=== PATIENT | female | born 1995 | race Caucasian/White ===

== ENCOUNTER 2024-02-03 14:50 | Outpatient (REF) | payer MEDICAID, SELFPAY ==
[2024-02-03 15:59] LABS: MANUAL DIFF FLAG NO
[2024-02-03 16:09] LABS: Basophils Absolute Auto 0.1 X10*3/uL (0.0-0.2); Basophils Percent Auto 0.5 % (0-2); Eosinophils Absolute Auto 0.2 X10*3/uL (0.0-0.4); Eosinophils Percent Auto 1.5 % (0-4); Hematocrit 30.5 % (37.0-47.0); Hemoglobin 10.2 g/dl (12.0-16.0); Imm Gran Abs Auto 0.09 X10*3/uL (0.00-0.03); Imm Gran Pct Auto 0.7 % (0.0-0.4); Lymphocytes Absolute Auto 2.1 X10*3/uL (1.2-4.9); Lymphocytes Percent Auto 16.4 % (20-40); Mean Corpuscular HGB Conc 33.4 g/dl (31.0-35.0); Mean Corpuscular Hemoglobin 30.5 pg (27.0-33.0); Mean Corpuscular Volume 91.3 fL (80.0-98.0); Mean Platelet Volume 10.4 fL (9.4-12.3); Monocytes Absolute Auto 0.6 X10*3/uL (0.1-1.2); Monocytes Percent Auto 4.8 % (2-11); Neutrophils Absolute Auto 9.8 x10*3/uL (2.0-8.3); Neutrophils Percent Auto 76.1 % (45-73); Platelet Count 207 X10*3/uL (160-400); Red Blood Count 3.34 X10*6/uL (4.20-5.50); Red Cell Distribution Width 13.9 % (11.0-16.0); White Blood Count 12.9 X10*3/uL (4.8-10.8)
[2024-02-03 16:33] LABS: Rheumatoid Factor < 13.0 IU/mL (<15.0)
== END 2024-02-03 14:51 | disposition home or self-care (01) ==
LOC: HO.HHCL 14:50
PROVIDERS: Visit Provider Nurse Practitioner Family
DX: M25.561 Pain in right knee (principal); M25.562 Pain in left knee
CPT/HCPCS: 36415; 85025; 86431

== ENCOUNTER 2024-04-05 12:03 | Outpatient (REF) | payer MEDICAID, SELFPAY ==
[2024-04-05 14:11] LABS: Alanine Aminotransferase 11 U/L (0-31); Alkaline Phosphatase 119 U/L (39-117); Anion Gap 11 (12-20); Aspartate Amino Transferase 12 U/L (5-31); Bilirubin Total 0.3 mg/dL (0.0-1.0); Blood Urea Nitrogen 5 mg/dL (9-16); Calcium 8.2 mg/dL (8.4-10.2); Carbon Dioxide 21 mmol/L (22-29); Chloride 108 mmol/L (96-108); Estimated Glomerular Filt Rate > 60; Glucose Random 79 mg/dL (60-115); Sodium 137 mmol/L (135-145); Total Protein 5.8 g/dL (6.5-8.0)
[2024-04-05 14:30] LABS: TSH reflex Free T4 1.36 uIU/mL (0.32-4.0)
== END 2024-04-05 12:04 | disposition home or self-care (01) ==
LOC: HO.HHCL 12:03
PROVIDERS: Visit Provider Internal Medicine
DX: K52.9 Noninfective gastroenteritis and colitis, unspecified (principal)
CPT/HCPCS: 36415; 80053; 84443

== ENCOUNTER 2024-04-17 18:29 | Emergency (ER) | payer MEDICAID, SELFPAY ==
[2024-04-17 18:35] VITALS: BP 198/92; PULSE 97; O2SAT 98
[2024-04-17 18:44] VITALS: BP 102/43; PULSE 74; RESP 16; TEMP 36.6; O2SAT 95; BMI 36.6
--- NOTE | 2024-04-17 18:57 | ED.GENADULT ---
HPI - General Adult General Chief complaint: Ear Problems Stated complaint: BLEEDING FROM EAR Time Seen by Provider: 04/17/24 18:56 Source: patient and EMS Mode of arrival: EMS Limitations: no limitations History of Present Illness ED Provider: Serenity Dodge PA-C HPI narrative: Patient is a 29 year old assigned female at with a history of ear drum reconstruction presenting to the emergency department today with left ear pain and bleeding. Patient states that over the last day she has had worsening left ear pain with bleeding. Patient denies any dizziness, lightheadedness, abdominal pain, nausea, vomiting, fever, chills, blurry vision, double vision, loss of vision, chest pain, difficulty breathing, shortness of breath, back pain, night sweats, pain with urination, increased urinary frequency, increased urinary urgency, blood in her urine or stool, syncope or a near syncopal episode, recent trauma or falls, bowel incontinence, bladder incontinence, or any other complaints at this time. Relieving factors: none Exacerbating factors: none Associated symptoms: denies other symptoms Treatments prior to arrival: none Related Data Previous Rx's ?Medication ?Instructions ?Recorded ofloxacin 0.3 % ear drops 10 drp otic (ears) BID 7 days #10 04/17/24 mL Allergies Allergy/AdvReac Type Severity Reaction Status Date / Time adhesive tape Allergy Rash Verified 04/17/24 18:48 aripiprazole [From Abilify] Allergy Unknown Verified 04/17/24 18:48 Review of Systems Constitutional: Constitutional: Reports no additional constitutional complaints, Denies chills, Denies fever(s) and Denies night sweats Eyes: Eyes: Reports no additional eye complaints, Denies blurry vision, Denies change in vision, Denies diplopia, Denies eye discharge, Denies loss of vision and Denies eye pain ENT: Denies dizziness Comments: left ear pain bleeding from the left ear Cardiovascular: Cardiovascular: Reports no additional cardiovascular complaints, Denies chest pain, Denies lightheadedness, Denies Loss of Consciousness and Denies dyspnea Respiratory: Respiratory: Reports no additional respiratory complaints and Denies dyspnea Gastrointestinal: Gastrointestinal: Reports no additional gastrointestinal complaints, Denies abdominal pain, Denies melena, Denies hematochezia, Denies change in bowel habits and Denies change in stool character Genitourinary: Genitourinary: Denies hematuria, Denies urinary frequency, Denies dysuria, Denies urinary incontinence, Denies urinary hesitancy and Denies urinary urgency Musculoskeletal: Musculoskeletal: Reports no additional musculoskeletal complaints, Denies numbness and Denies tingling Neurologic: Denies dizziness, Denies loss of vision, Denies numbness and Denies tingling Psychiatric: Psychiatric: Reports no additional psychiatric complaints Endocrine: Endocrine: Reports no additional endocrine complaints Hematologic/Lymphatic: Hematologic/Lymphatic: Reports no additional hematologic/lymphatic complaints Allergic/Immunologic: Allergic/Immunologic: Reports no additional allergic/immunologic complaints [facility] Past Medical History Attestation statement: The following information was validated with the patient. Source: old records reviewed and nursing notes reviewed Social History Social History Advance Directives: No Advance Directives Information Provided: No Physical Exam ED Vital Signs: Vital Signs - 24 hr 04/17/24 18:44 04/17/24 19:50 04/17/24 19:51 Temperature 97.9 F 98.3 F 98.3 F Pulse Rate 74 78 78 Respiratory Rate 16 16 16 Blood Pressure 102/43 L 102/53 L 102/53 L Pulse Oximetry 95 100 100 Oxygen Delivery Method Room Air Room Air Room Air BMI result Body Mass Index 36.6 Const General: cooperative, no acute distress, alert and awake Nutritional Appearance: well nourished Orientation/consciousness: patient oriented x3 Limitations: no limitations HENMT Head: Yes normal to inspection and Yes atraumatic Ears: hearing grossly normal bilaterally, external ears normal and TM abnormal perforated with bloody discharge on the left General nose exam: Normal external nose present, no nasal discharge noted and no epistaxis Face and sinus: Yes normal facial exam, No abrasion and No laceration Mouth: Normal oral and palatal mucosa present, no drooling and no muffled voice Eyes General: appearance normal, both eyes and all related structures Periorbital: periorbital findings normal Eyelids: Yes eyelids normal Conjunctivae: conjunctivae normal Pupils: Equal, round and reactive pupils present EOM: EOMs intact bilaterally Neck Neck: Yes normal visual inspection, Yes full ROM and Yes no lymphadenopathy Chest Chest palpation & inspection: normal inspection of the chest Resp Effort & Inspection: normal respiratory effort and able to speak in complete sentences GI Inspection: Yes normal to inspection Neuro General: patient oriented x3 and moves all extremities Cranial nerves: Yes Equal, round and reactive pupils present Cognition (Neuro): normal cognition Extrem General: Yes normal to inspection, Yes full ROM and Yes capillary refill normal Psych Appearance: grossly normal Mental Status: mental status grossly normal Affect: normal affect Attitude: cooperative Thought process: Normal thought process present Thought content: Normal thought content present Insight: Good insight present (Psych) Medical Decision Making Medical Decision Making MDM Narrative: Patient is a 29 year old assigned female at with a history of ear drum reconstruction presenting to the emergency department today with left ear pain and bleeding. Patient's physical exam showed a perforated left ear drum with some bleeding. I explained my physical exam findings to the patient. I answered all questions asked by the patient. I stressed the importance of the patient taking her medication as directed (either prescribed or as the over the counter packaging recommends). I stressed the importance of the patient following up with her primary care provider and an ENT. I stressed the importance of the patient returning to the emergency department immediately if her symptoms were to worsen or if she were to develop any dizziness, shortness of breath, difficulty breathing, chest pain, blurry vision, loss of vision, nausea, vomiting, abdominal pain, fever, chills, back pain, or any other complaints. Patient verbalized agreement and understanding with this treatment plan and discharge. Differential Diagnosis Differential Diagnoses: The differential diagnosis associated with the presentation includes Otitis media Perforated TM Admission/Observation Consideration of admission/observation: Escalation of care including admission/observation considered Patient would have been admitted to the hospital had her clinical presentation warranted hospital admission. Independent Historian Clinical information obtained from an independent historian. History obtained from or confirmed by: EMS (EMS provided additional history and confirmed the history provided by the patient.) Prescription Management I considered prescription management with: Antibiotic (patient prescribed an antibiotic for left OM) Discharge Plan Discharge Clinical Impression: Otitis media, Abnormal tympanic membrane Patient Disposition: Home, Self-Care Instructions: Ear Infection (ED) Additional Instructions: Follow up with your primary care provider. Return to the emergency department immediately if your symptoms worsen or if you develop any dizziness, shortness of breath, difficulty breathing, chest pain, blurry vision, loss of vision, nausea, vomiting, abdominal pain, fever, chills, back pain, or any other complaints. Prescriptions: New ofloxacin 0.3 % drops 10 drp otic (ears) BID 7 Days Qty: 10 0RF Referrals: [facility] [place] Family Medicine [Provider Group] (Call to establish and follow up with a primary care provider. If you already have a primary care provider, please follow up with them.) [facility] [place] Primary Care, Karen [Provider Group] (Call to establish and follow up with a primary care provider. If you already have a primary care provider, please follow up with them.) [facility] [place] Primary Care,Tanna [Provider Group] (Call to establish and follow up with a primary care provider. If you already have a primary care provider, please follow up with them.) Keny Reynolds [Physician] - (Call to establish and follow up with an ENT specialist. ) Interventions: ED Discharge Assessment Last Done: 04/17/24 19:51 Discharge Date/Time: 04/17/24 19:51 Print Language: Macedonian
[2024-04-17 19:50] VITALS: BP 102/53; PULSE 78; RESP 16; TEMP 36.8; O2SAT 100
[2024-04-17 19:51] VITALS: BP 102/53; PULSE 78; RESP 16; TEMP 36.8; O2SAT 100
== END 2024-04-17 19:51 | disposition home or self-care (01) ==
PROVIDERS: Emergency Provider Emergency Medicine
DX: H66.92 Otitis media, unspecified, left ear (principal); H73.92 Unspecified disorder of tympanic membrane, left ear
CPT/HCPCS: 99283

== ENCOUNTER 2025-04-19 15:34 | Outpatient (REF) | payer OTHER, SELFPAY ==
[2025-04-20 13:09] LABS: Bacterial Vaginosis PCR POSITIVE (Negative); Candida Group PCR DETECTED (Not Detect); Candida glab krusei PCR NOT DETECTED (Not Detect); Trichomonas vaginalis PCR NOT DETECTED (Not Detect)
[2025-04-20 13:40] LABS: CT PCR NOT DETECTED (Not Detect.); NG PCR NOT DETECTED (Not Detect.)
== END 2025-04-19 15:35 | disposition home or self-care (01) ==
LOC: HO.HHCLNP 15:34
PROVIDERS: Visit Provider Nurse Practitioner Family
DX: Z20.2 Contact with and (suspected) exposure to infections with a predominantly sexual mode of transmission (principal); N89.8 Other specified noninflammatory disorders of vagina
CPT/HCPCS: 81515; 87491; 87591

== ENCOUNTER 2025-04-22 09:19 | Outpatient (REF) | payer OTHER, SELFPAY ==
--- OUTSIDE RECORDS SUMMARY | 2025-04-19 14:45 | XMS_ITS | Encounter Summary ---
Author Organization [facility] [employer] Address [address] [place] [address] 7 [place] [address] Care Team Providers Care Hydropress Operator Name Role Phone Chata Graham NP Primary Care Provider Reason for Referral * Consultation (Routine) - Pending Review Specialty Diagnoses / Procedures Referred By José Miguel recio Referred To Contact Breast Surgery Diagnoses Family history of breast cancer Chata Graham NP [address] [place] [address] Phone: tel: fax: Referral ID Status Reason Start Date Expiration Date Visits Requested Visits Authorized [id number] Pending Review Specialty Services Required 04/19/2025 04/19/2026 1 1 * Consultation (Routine) - Pending Review Specialty Diagnoses / Procedures Referred By José Miguel recio Referred To Contact Audiology Diagnoses Other specified hearing loss of left ear, unspecified hearing status on contralateral side Chata Graham NP [address] [place] [address] Phone: tel: fax: Referral ID Status Reason Start Date Expiration Date Visits Requested Visits Authorized [id number] Pending Review Specialty Services Required 04/19/2025 04/19/2026 1 1 * Consultation (Routine) - Authorized Specialty Diagnoses / Procedures Referred By José Miguel t Referred To Contact Case Management Diagnoses Housing instability Chata Graham NP [address] [place] [address] Phone: tel: fax: Referral ID Status Reason Start Date Expiration Date Visits Requested Visits Authorized [id number] Authorized Specialty Services Required 04/19/2025 04/19/2026 1 1 * Consultation (Routine) - Pending Review Specialty Diagnoses / Procedures Referred By José Miguel recio Referred To Contact Orthopaedic Surgery Diagnoses History of tear of ACL (anterior cruciate ligament) Chata Graham NP [address] [place] [address] Phone: tel: fax: Referral ID Status Reason Start Date Expiration Date Visits Requested Visits Authorized [id number] Pending Review Specialty Services Required 04/19/2025 04/19/2026 1 1 * Consultation (Routine) - Pending Review Specialty Diagnoses / Procedures Referred By José Miguel recio Referred To Contact Physiatry Diagnoses Bilateral sciatica Chata Graham NP [address] [place] [address] Phone: tel: fax: Referral ID Status Reason Start Date Expiration Date Visits Requested Visits Authorized [id number] Pending Review Specialty Services Required 04/19/2025 04/19/2026 1 1 Reason for Visit * Reason Comments Annual Exam Encounter Details Date Type Department Care Team (Latest Contact Info) Description 04/19/2025 2:45 PM EDT [facility] [address] [place] [id number] Chata Graham NP [address] [place] [address] Bilateral sciatica (Primary Dx); History of tear of ACL (anterior cruciate ligament); Housing instability; Other specified hearing loss of left ear, unspecified hearing status on contralateral side; Dietary counseling; Exercise counseling; Tick bite of thigh, unspecified laterality, subsequent encounter; Family history of breast cancer; Healthcare maintenance; , unspecified gestational age; Vaginal discharge Social History Tobacco Use Types Packs/Day Years Used Date Smoking Tobacco: Never Smokeless Tobacco: Never Alcohol Use Standard Drinks/Week Comments Never 0 (1 standard drink = 0.6 oz pur e alcohol) Depression Answer Date Recorded Patient Health Questionnaire-9 Score 24 04/19/2025 Patient Health Questionnaire-9 Score 24 04/19/2025 Last PHQ-9: Questionnaire Data Not on file 1 Housing Stability Answer Date Recorded What is your housing situation today? I have marah saini 01/04/[address] you li ve. Do you have problems with any of the following? None of the above 01/04/2025 Food Insecurity Answer Date Recorded Within the past 12 months, y ou worried that your food would run out before you got money to buy more: Never True 01/04/2025 Within the past 12 months,th e food you bought just didn't last and you didn't have enough money to get more: Never True Transportation Answer Date Recorded In the past 12 months, has l ack of transportation kept you from medical appts, meetings, work or from getting things needed for daily living? No 01/27/2024 Utilities Answer Date Recorded In the past 12 months, has t he electric, gas, oil or water company threatened to shut off services in your home? No 01/27/2024 Depression Answer Date Recorded Patient Health Questionnaire-2 Score 4 04/19/2025 Internet Access Answer Date Recorded Internet Access Q1 Yes 03/15/2024 Internet Access Q2 Not on file 03/15/2024 Comments Yes Sex and Gender Information Value Date Recorded Sex Assigned at Female 10/31/2023 8:35 AM EDT Legal Sex Female 9:27 AM EDT Gender Identity Female 10/31/2023 8:35 AM EDT Sexual Orientation Straight 10/31/2023 8: 35 AM EDT documented as of this encounter Last Filed Vital Signs Vital Sign Reading Time Taken Comments Blood Pressure 122/82 04/19/2025 3:00 PM EDT Pulse 84 04/19/2025 3:00 PM EDT Temperature 37.1 C (98.7 F) 04/19/2025 3:00 PM EDT Respiratory Rate 21 04/19/2025 3:00 PM EDT Oxygen Saturation 100% 04/19/2025 3:00 PM EDT Inhaled Oxygen Concentration - - Weight 74.6 kg (164 lb 6.4 oz) 04/19/2025 3:00 P M EDT Height 157.5 cm (5' 2 ) 04/19/2025 3:00 PM EDT Body Mass Index 30.07 04/19/2025 3:00 PM EDT documented in this encounter Functional Status * Over the past 2 weeks, how often have you been bothered by any of the following problems? Question Answer Date of Assessment Author Patient Health Questionnaire -2 Score 4 04/19/2025 3:42 PM EDT Jessica Hope MA * Little interest or pleasure in doing things Answer Date of Assessment Author More than half the days 04/19/2025 3:42 PM EDT Jessica Bridges MA * Feeling down, depressed, or hopeless Answer Date of Assessment Author More than half the days 04/19/2025 3:42 PM EDT Jessica Bridges MA * Trouble falling or staying asleep, or sleeping too much Answer Date of Assessment Author More than half the days 04/19/2025 3:42 PM EDT Jessica Bridges MA * Feeling tired or having little energy Answer Date of Assessment Author Nearly every day 04/19/2025 3:42 PM EDT Jessica Hope MA * Poor appetite or overeating Answer Date of Assessment Author Nearly every day 04/19/2025 3:42 PM EDT Jessica Hope MA * Feeling bad about yourself - or that you are a failure or have let yourself or your family down Answer Date of Assessment Author Nearly every day 04/19/2025 3:42 PM EDT Jessica Hope MA * Trouble concentrating on things, such as reading the newspaper or watching television Answer Date of Assessment Author Nearly every day 04/19/2025 3:42 PM EDT Jessica Hope MA * Moving or speaking so slowly that other people could have noticed? Or the opposite - being so fidgety or restless that you have been moving around a lot more than usual. Answer Date of Assessment Author Nearly every day 04/19/2025 3:42 PM EDT Jessica Hope MA * Thoughts that you would be better off or hurting yourself in some way Answer Date of Assessment Author Nearly every day 04/19/2025 3:42 PM EDT Jessica Hope MA * Patient Health Questionnaire-9 Score Answer Date of Assessment Author 24 04/19/2025 3:42 PM EDT Jessica Hope MA * How difficult have these problems made it for you to do your work, take care of things at home, or get along with other people? Answer Date of Assessment Author Very difficult 04/19/2025 3:42 PM EDT Jessica Hope MA * Over the last 2 weeks, how often have you been bothered by any of the following problems? Question Answer Date of Assessment Author Feeling nervous, anxious, or on edge 0 04/19/2025 3:40 PM EDT Jessica Hope MA Not being able to stop or co ntrol worrying 0 04/19/2025 3:40 PM EDT Jessica Hope MA Worrying too much about diff erent things 0 04/19/2025 3:40 PM EDT Jessica Hope MA Trouble relaxing 2 04/19/2025 3:40 PM EDT Jessica Bridges MA Being so restless that it is hard to sit still 0 04/19/2025 3:40 PM EDT Jessica Hope MA Becoming easily annoyed or irritable 0 04/19/2025 3:40 PM EDT Jessica Hope MA Feeling afraid as if somethi ng awful might happen 0 04/19/2025 3:40 PM EDT Jessica Hope MA MIKHAIL-7 Total Score 2 04/19/2025 3:40 PM EDT Jessica Hope MA documented as of this encounter Miscellaneous Notes * Assessment & Plan Note - Chata Graham NP - 04/19/2025 2:45 PM EDTAssociated Problem(s): Bilateral sciatica Orders: Referral to Physiatry; Future * Assessment & Plan Note - Chata Graham NP - 04/19/2025 2:45 PM EDTAssociated Problem(s): History of tear of ACL (anterior cruciate ligament) Orders: Referral to Orthopaedic Surgery; Future * Assessment & Plan Note - Chata Graham NP - 04/19/2025 2:45 PM EDTAssociated Problem(s): Housing instability Orders: Referral to Case Management; Future * Assessment & Plan Note - Chata Graham NP - 04/19/2025 2:45 PM EDTAssociated Problem(s): Hearing loss of left ear Orders: Referral to Audiology; Future * Assessment & Plan Note - Chata Graham NP - 04/19/2025 2:45 PM EDTAssociated Problem(s): Dietary counseling * Assessment & Plan Note - Chata Graham NP - 04/19/2025 2:45 PM EDTAssociated Problem(s): Exercise counseling * Assessment & Plan Note - Chata Graham NP - 04/19/2025 2:45 PM EDTAssociated Problem(s): Tick bite of thigh Orders: Lyme Disease Ab with Reflex to Blot (IgG, IgM); Future * Assessment & Plan Note - Chata Graham NP - 04/19/2025 2:45 PM EDTAssociated Problem(s): Family history of breast cancer Orders: Referral to Breast Clinic; Future * Assessment & Plan Note - Chata Graham NP - 04/19/2025 2:45 PM EDTAssociated Problem(s): Healthcare maintenance Orders: Lipid Panel, Standard; Future HIV-1/2 Antigen and Antibodies, Fourth Generation, with Reflexes; Future Hepatitis C Antibody with Reflex to HCV, RNA, Quantitative, Real-Time PCR; Future RPR (Monitor) with Reflex to Titer; Future * Assessment & Plan Note - Chata Graham NP - 04/19/2025 2:45 PM EDTAssociated Problem(s): Orders: Measles, Mumps, and Rubella (MMR) Antibodies (IgG) Panel, Immune Status; Future Varicella Zoster Antibody, IgG; Future Hepatitis B surface antigen, EIA; Future Hepatitis B Surface Antibody, Qualitative; Future * Assessment & Plan Note - Chata Graham NP - 04/19/2025 2:45 PM EDTAssociated Problem(s): Vaginal discharge Orders: Bacterial Vaginosis Panel Chlamydia/N. Gonorrhoeae RNA, TMA, Vaginal documented in this encounter Plan of Treatment Upcoming Encounters Date Type Department Care Team (Late st Contact Info) Description 05/17/2025 11:00 AM EST Office [facility] [address] [place] [address] Rizwana Ware DDS [address] [place] [address] Scheduled Orders Name Type Priority Associated Diagnoses Orde r Schedule Lyme Disease Ab with Reflex to Blot (IgG, IgM) Lab Routine Tick bite of thigh, unspecified laterality, subsequent encounter Expected: 04/19/2025, Expires: 04/19/2026 Lipid Panel, Standard Lab Routine Healthcare maintenance Expected: 04/19/2025 (Approximate), Expires: 04/19/2026 HIV-1/2 Antigen and Antibodies, Fourth Generation, with Reflexes Lab Routine Healthcare maintenance Expected: 04/19/2025 (Approximate), Expires: 04/19/2026 Hepatitis C Antibody with Reflex to HCV, RNA, Quantitative, Real-Time PCR Lab Routine Healthcare maintenance Expected: 04/19/2025, Expires: 04/19/2026 RPR (Monitor) with Reflex to Titer Lab Routine Healthcare maintenance Expected: 04/19/2025, Expires: 04/19/2026 Measles, Mumps, and Rubella (MMR) Antibodies (IgG) Panel, Immune Status Lab Routine , unspecified gestational age Expected: 04/19/2025 (Approximate), Expires: 04/19/2026 Varicella Zoster Antibody, IgG Lab Routine , unspecified gestational age Expected: 04/19/2025 (Approximate), Expires: 04/19/2026 Hepatitis B surface antigen, EIA Lab Routine , unspecified gestational age Expected: 04/19/2025 (Approximate), Expires: 04/19/2026 Hepatitis B Surface Antibody, Qualitative Lab Routine , unspecified gestational age Expected: 04/19/2025 (Approximate), Expires: 04/19/2026 Scheduled Referrals Name Type Priority Associated Diagnoses Orde r Schedule Referral to Physiatry Outpatient Referral Routine Bilateral sciatica Expected: 04/19/2025 (Approximate), Expires: 04/19/2026 Referral to Orthopaedic Surgery Outpatient Referral Routine History of tear of ACL (anterior cruciate ligament) Expected: 04/19/2025 (Approximate), Expires: 04/19/2026 Referral to Case Management Outpatient Referral Routine Housing instability Expected: 04/19/2025 (Approximate), Expires: 04/19/2026 Referral to Audiology Outpatient Referral Routine Other specified hearing loss of left ear, unspecified hearing status on contralateral side Expected: 04/19/2025 (Approximate), Expires: 04/19/2026 Referral to Breast Clinic Outpatient Referral Routine Family history of breast cancer Expected: 04/19/2025 (Approximate), Expires: 04/19/2026 documented as of this encounter Procedures Procedure Name Priority Date/Time Associated Diagnosis Comments BACTERIAL VAGINOSIS PANEL Routine 04/19/2025 3:34 PM EDT Vaginal discharge CHLAMYDIA/N. GONORRHOEAE RNA, TMA, UROGENITAL Routine 04/19/2025 3:34 PM EDT Vaginal discharge documented in this encounter Results * Chlamydia/N. Gonorrhoeae RNA, TMA, Vaginal (04/19/2025 3:34 PM EDT) CT PCR NOT DETECTED Not Detect. [facility] Comment:A not detected test result does not exclude the possibilityof infection because test results can be affected byimproper specimen collection, concurrent antibiotic therapy,or the number of organisms in the specimen which may bebelow the sensitivity of the test. As with many diagnostictests, results from the Xpert CT/NG assay should beinterpreted in conjunction with other laboratory andclinical data available to the clinician.Xpert CT/NG performance has not been evaluated in patientsless than 14 years of age. The assay should not be used forthe evaluationof suspected sexual abuse or for other medico-legalindications. Additional testing is recommended in anycircumstance when false positive or false negative resultscould lead to adverse medical, social or psychologicalconsequences. NG PCR NOT DETECTED Not Detect. [facility] Comment:A not detected test result does not exclude the possibilityof infection because test results can be affected byimproper specimen collection, concurrent antibiotic therapy,or the number of organisms in the specimen which may bebelow the sensitivity of the test. As with many diagnostictests, results from the Xpert CT/NG assay should beinterpreted in conjunction with other laboratory andclinical data available to the clinician.Xpert CT/NG performance has not been evaluated in patientsless than 14 years of age. The assay should not be used forthe evaluationof suspected sexual abuse or for other medico-legalindications. Additional testing is recommended in anycircumstance when false positive or false negative resultscould lead to adverse medical, social or psychologicalconsequences. Swab Vaginal structure / Unknown 04/19/2025 3:34 PM EDT 04/20/2025 11:44 AM EDT us Chata Graham NP LAB MICROBIOLOGY - GENERAL ORDER BRIANDA Final Result Performing Organization Address [facility] Co de Phone Number [facility] [address] [place] [address] [phone] * (ABNORMAL) Bacterial Vaginosis Panel (04/19/2025 3:34 PM EDT) TRICHOMONAS VAGINALIS DETECTION BY PCR NOT DETECTED Not Detect [facility] BACTERIAL VAGINOSIS DETECTION BY PCR POSITIVE(A) Negative [facility] Comment:The BV organism targ ets of the Xpert Xpress MVP test can becommensal in women; Xpert Xpress MVP positive results forbacterial vaginosis should be considered in conjunction withother clinical and patient information to determine thedisease status. Organisms that are not detected by the XpertXpress MVP test have also been reported to be associatedwith BV and aerobic vaginitis.The Xpert Xpress MVP test performance has not been evaluatedin patients under the age of 14. MINNA GROUP DETECTION BY PCR DETECTED(A) Not Detect [facility] Minna glab krusei PCR NOT DETECTED Not Detect [facility] Swab Vaginal structure / Unknown 04/19/2025 3:34 PM EDT 04/20/2025 11:44 AM EDT us Chata Graham NP LAB MICROBIOLOGY - GENERAL ORDER BRIANDA Final Result Performing Organization Address [facility]/ZIP Co de Phone Number [facility] [address] [place] [address] [phone] documented in this encounter Visit Diagnoses Diagnosis Bilateral sciatica- Primary Sciatica History of tear of ACL (anterior cruciate ligament) Personal history of other musculoskeletal disorders Housing instability Other specified hearing loss of left ear, unspecified hearing status on contralateral side Dietary counseling Dietary surveillance and counseling Exercise counseling Tick bite of thigh, unspecified laterality, subsequent encounter Family history of breast cancer Family history of malignant neoplasm of breast Healthcare maintenance , unspecified gestational age Vaginal discharge Leukorrhea, not specified as infective documented in this encounter Additional Health Concerns Assessment Noted Time PHQ-9 Depression Total Score: 24 025 3:42 PM EDT documented as of this encounter Care Teams Hydropress Operator Relationship Specialty Start Date End Date Chata Graham NP [address] [place] [id number] PCP - General Family Medicine 02/03/24 documented as of this encounter
--- OUTSIDE RECORDS SUMMARY | 2025-04-22 09:51 | XMS_ITS | Encounter Summary ---
Author Organization [employer] Address [address] [facility] [address] [place] [address] Care Team Providers Care Shrimp Packer Name Role Phone Chata Graham NP Primary Care Provider [phone] Reason for Visit * Reason Onset Date Comments rs appt/obgyn clearance 04/05/2025 Encounter Details Date Type Department Care Team ([facility] st Contact Info) Description 04/05/2025 Telephone [facility] [address] [place] [address] Onel Vo DDS [address] [place] [address] rs appt/obgyn clearance Social History Tobacco Use Types Packs/Day Years Used Date Smoking Tobacco: Never Smokeless Tobacco: Never Alcohol Use Standard Drinks/Week Comments Never 0 (1 standard drink = 0.6 oz pur e alcohol) Housing Stability Answer Date Recorded What is [...] off services in your home? No 01/27/2024 Internet Access Answer Date Recorded Internet Access Q1 Yes 03/15/2024 Internet Access Q2 Not on file 03/15/2024 Comments Unknown Sex and Gender Information Value Date Recorded Sex Assigned at Female 10/31/2023 8:35 AM EDT Legal Sex Female 9:27 AM EDT Gender Identity Female 10/31/2023 8:35 AM EDT Sexual Orientation Straight 10/31/2023 8: 35 AM EDT documented as of this encounter Miscellaneous Notes * Telephone Encounter - Hailey Munoz - 04/05/2025 9:[address] EDT Message for Dr. Vo Patient is looking to reschedule extraction appointment with Dr. Vo. Last appointment canceled as needing clearance from OBGYN. Patient has clearance. Informed patient that clearance must either be faxed in or brought into office for provider review and once the clearance is reviewed patient will receive call to schedule appointment pending appointment availability. Patient states she will come by office to drop off clearance Message sent to both provider and front line leader documented in this encounter Plan of Treatment Upcoming Encounters Date Type Department Care Team (Late st Contact Info) Description 05/17/2025 11:00 AM EST Office Visit [facility] [address] [place] [address] Rhodes-SchmittSaranRizwana, DDS [address] [place] [address] documented as of this encounter Visit Diagnoses Not on filedocumented in this encounter Care Teams Shrimp Packer Relationship Specialty Start Date End Date Chata Graham NP [address] [place] [address] PCP - General Family Medicine 02/03/24 documented as of this encounter
--- OUTSIDE RECORDS SUMMARY | 2025-04-22 09:51 | XMS_ITS | Clinical Summary ---
Author Organization [facility] Address [address] [place] [address] Care Team Providers Care Audit Control Clerk Name Role Phone Counts Include [address] [facility] Primary Care Provider Allergies Active Allergy Reactions Criticality Noted Date Comments Aripiprazole Anaphylaxis High 05/21/2023 Medications * This document contains information received from the source organization and may not represent a complete record from that organization. acetaminophen (TYLENOL) 325 mg tablet Take 2 tablets (650 mg total) by mouth every 4 hours as needed for pain. 90 tablet 05/24/2023 10:34 AM EST 3 Active budesonide-for moteroL (SYMBICORT) 80-4.5 mcg inhaler Inhale 2 puffs by mouth every 12 hours. Rinse mouth with water after use. Do not swallow. 10.2 g 05/24/2023 10:34 AM EST 3 Active famotidine (PEPCID) 20 mg tablet Take 1 tablet (20 mg total) by mouth 2 times a day. 60 tablet 05/24/2023 10:34 AM EST 3 Active ibuprofen (MOTRIN) 600 mg tablet Take 1 tablet (600 mg total) by mouth every 6 hours as needed for pain. 90 tablet 05/24/2023 10:34 AM EST 3 Active polyethylene glycol 3350 (MIRALAX) 17 gram packet Mix the contents of one packet in 4 to 8 oz of water, juice, coffee, or tea prior to administration and drink daily as needed for constipation. 30 each 05/24/2023 10:34 AM EST 3 Active Active Problems No known active problems Resolved Problems Problem Noted Date Diagnosed Date Resolved Date Normal labor and delivery 05/21/2023 Immunizations Immunization Administration Dates Next Due Influenza, Injectable, Quadr ivalent, Preservative Free 05/22/2023(Deferred: Patient Refused) Measles, Mumps, and Rubella Vaccine 05/24/2023 Family History Medical History Relation Name Comments Schizophrenia Brother Substance Abuse Mother Relation Name Status Comments Brother Alive Mother Alive Social History Tobacco Use Types Packs/Day Years Used Date Smoking Tobacco: Never Assessed Tobacco Cessation:Counseling Given: Not Answered Comments Unknown Sex and Gender Information Value Date Recorded Sex Assigned at Female 09/23/2023 5:49 PM EDT Legal Sex Female 8:26 AM EDT Gender Identity Not on file Sexual Orientation Not on file Last Filed Vital Signs Vital Sign Reading Time Taken Comments Blood Pressure 113/78 09/24/2023 10:16 AM EDT Pulse 76 09/24/2023 3:52 PM EDT Temperature 36.6 C (97.9 F) 09/23/2023 8:52 PM EDT Respiratory Rate 16 09/24/2023 6:06 AM EDT Oxygen Saturation 94% 09/24/2023 3:52 PM EDT Inhaled Oxygen Concentration - - Weight 90.7 kg (200 lb) 09/23/2023 5:17 PM EDT Height 157.5 cm (5' 2 ) 05/21/2023 12:54 PM EST Body Mass Index 36.58 05/21/2023 12:54 PM EST Plan of Treatment Health Maintenance Due Date Last Done Comments HIV Screening 1995 Hepatitis B Vaccines (1 of 3 - 19+ 3-dose series) 2014 Varicella Vaccines (1 of 2 - 13+ 2-dose series) 06/21/2023 Alcohol/Substance Use Screening 07/14/2024 COVID-19 Vaccine (1 - 2023-2 5 season) 2025 Influenza Vaccine (#1) 2025 08/12/2013 DTaP,Tdap,and Td Vaccines (3 - Td or Tdap) 02/26/2033 02/26/2023, 08/12/2013 RSV Vaccine (60+ years old and patients) (1 - 1-dose 75+ series) 2070 Pneumococcal Vaccine: Pediatric (0-5 Years) and At-Risk Patients (6-50 Years) Aged Out No longer eligible based on patient's age to complete this topic Insurance [facility] Advance Directives * Full Code (Latest Code Status on File) Date Activated Date Inactivated Comments 05/21/2023 6:49 PM 05/24/2023 4:08 PM Care Teams Audit Control Clerk Relationship Specialty Start Date End Date Counts Include [address] [facility] [address] [place] [phone] PCP - General Family Medicine 03/20/23
--- OUTSIDE RECORDS SUMMARY | 2025-04-22 09:51 | XMS_ITS | Encounter Summary ---
Author Organization [facility] Address [address] [place] [address] Care Team Providers Care Counseling Aide Name Role Phone Replaced By [facility] Primary Care Provider Encounter Details Date Type Department Care Team (Late st Contact Info) Description 09/26/2023 Community Orders [facility] Link [address] [place] [address] Brooke Bolanos MD [address] [place] [phone] Current with uncertain date of last menstrual period with multiple normal prior pregnancies (Primary Dx) Social History Tobacco Use Types Packs/Day Years Used Date Smoking Tobacco: Never Assessed Comments Unknown Sex and Gender Information Value Date Recorded Sex Assigned at Female 09/23/2023 5:49 PM EDT Legal Sex Female 8:26 AM EDT Gender Identity Not on file Sexual Orientation Not on file documented as of this encounter Plan of Treatment Not on file documented as of this encounter Visit Diagnoses Diagnosis Current with uncertain date of last menstrual period with multiple normal prior pregnancies (HCC)- Primary documented in this encounter Care Teams Counseling Aide Relationship Specialty Start Date End Date Replaced By [facility] [address] [place] [id number] PCP - General Family Medicine 03/20/23 documented as of this encounter
--- OUTSIDE RECORDS SUMMARY | 2025-04-22 09:51 | XMS_ITS | Clinical Summary ---
Author Organization [employer] Address [address] [facility] 7t [place] [address] Care Team Providers Care Water Supply Engineer Name Role Phone Chata Graham NP Primary Care Provider [phone] Allergies Active Allergy Reactions Criticality Noted Date Comments Aripiprazole Anaphylaxis High 05/21/2023 Medications acetaminophen (Tylenol) 325 MG tablet Take 325 mg by mouth every 4 (four) hours if needed. 05/07/2024 Active amoxicillin (Amoxil) 500 MG capsule Take 1 capsule (500 mg) by mouth every 8 (eight) hours for 7 days. 21 capsule 04/12/2025 04/19/20 acetaminophen (Tylenol) 500 MG tablet Take 1 tablet (500 mg) by mouth every 8 (eight) hours if needed for mild pain for up to 7 days. 21 tablet 04/12/2025 04/19/20 25 Active Problems Problem Noted Date Diagnosed Date Bilateral sciatica 04/19/2025 Assessment & Plan (04/19/2025 3:30 PM EDT): Orders: Referral to Physiatry; Future History of tear of ACL (anterior cruciate ligame nt) 04/19/2025 Assessment & Plan (04/19/2025 3:30 PM EDT): Orders: Referral to Orthopaedic Surgery; Future Housing instability 04/19/2025 Assessment & Plan (04/19/2025 3:30 PM EDT): Orders: Referral to Case Management; Future Dietary counseling 04/19/2025 Assessment & Plan (04/19/2025 3:30 PM EDT): Exercise counseling 04/19/2025 Assessment & Plan (04/19/2025 3:30 PM EDT): Tick bite of thigh 04/19/2025 Assessment & Plan (04/19/2025 3:30 PM EDT): Orders: Lyme Disease Ab with Reflex to Blot (IgG, IgM); Future Family history of breast cancer 04/19/2025 Assessment & Plan (04/19/2025 3:30 PM EDT): Orders: Referral to Breast Clinic; Future Healthcare maintenance 04/19/2025 Assessment & Plan (04/19/2025 3:30 PM EDT): Orders: Lipid Panel, Standard; Future HIV-1/2 Antigen and Antibodies, Fourth Generation, with Reflexes; Future Hepatitis C Antibody with Reflex to HCV, RNA, Quantitative, Real-Time PCR; Future RPR (Monitor) with Reflex to Titer; Future 04/19/2025 Assessment & Plan (04/19/2025 3:30 PM EDT): Orders: Measles, Mumps, and Rubella (MMR) Antibodies (IgG) Panel, Immune Status; Future Varicella Zoster Antibody, IgG; Future Hepatitis B surface antigen, EIA; Future Hepatitis B Surface Antibody, Qualitative; Future Vaginal discharge 04/19/2025 Assessment & Plan (04/19/2025 3:30 PM EDT): Orders: Bacterial Vaginosis Panel Chlamydia/N. Gonorrhoeae RNA, TMA, Vaginal Gastroenteritis 04/05/2024 Assessment & Plan (04/05/2024 4:26 PM EDT): Its most likely viral, I explained that food poisoning usually tend to last less days (1-2 max) but she still needs to work out the malfunction of the fridge with the intermediate purchasing administrator or avoid consuming meals that need refrigeration. Advised to increase PO hydration: Water, chicken broth, crystal lite lemonade, Gatorade etc. Avoid mild or derivatives Discussed about advancing to BRAT diet as tolerated Take Imodium 2-3x/d prn diarrhea, advisory reviewed, not contraindicated. Order stool tests and labs to ro severe dehydration or electrolyte imbalance, we'll replace prn Advised to fu tomorrow with her [facility] PCP and continue to fu until delivery. I told her she can fu with us after delivery if she wants to. We discussed re red flags to go to Ed : persistent abd pain, decreased movs, fever/chills, severe vomiting, vaginal bleeding. She agreed with POC. and infectious disease, third trimeste r 04/05/2024 Assessment & Plan (04/05/2024 4:29 PM EDT): She fu at [facility] woman clinic, seen by OB 3d ago Advised to call them if sxs last more than 2 more days, if movs are decreased, if she develops abd cramping or vaginal discharge. She will fu with her CM at [facility] re housing or moving to a family intermediate. Mental health disorder 02/18/2024 Hearing loss of left ear 02/08/2024 Assessment & Plan (04/19/2025 3:30 PM EDT): Orders: Referral to Audiology; Future Assessment & Plan (02/08/2024 10:33 AM EDT): Chronic issue, referral to audiology 32 weeks gestation of 02/08/2024 Assessment & Plan (02/08/2024 10:33 AM EDT): Pt is established with [facility] licensed psychologist manager. Arthralgia of both knees 02/03/2024 Assessment & Plan (02/08/2024 10:33 AM EDT): + fh of RA, pt requesting evaluation. Labs ordered While pt has hx of lyme disease was treated with symptom resolution, reviewed limitations of diagnostic testing for lyme in absence of acute symptoms . Pt verbalizes understanding and is comfortable with not repeating testing today Comments Yes Encounters Date Type Department Care Team Description 04/19/2025 2:45 PM EDT Office Visit [facility] [address] [place] [phone] Chata Graham NP Bilateral sciatica (Primary Dx); History of tear of ACL (anterior cruciate ligament); Housing instability; Other specified hearing loss of left ear, unspecified hearing status on contralateral side; Dietary counseling; Exercise counseling; Tick bite of thigh, unspecified laterality, subsequent encounter; Family history of breast cancer; Healthcare maintenance; , unspecified gestational age; Vaginal discharge 04/19/2025 Travel 04/18/2025 Travel 04/18/2025 Telephone [facility] [address] [place] [phone] Chata Graham NP chart prep 04/12/2025 2:30 PM EDT Office Visit [facility] [address] [place] [phone] Orlin Hardin DDS 04/12/2025 Patient Outreach [facility] [address] [place], [place] [phone] Chata Graham NP Pre-visit Planning (SDOH unable to reach [facility] ) 04/05/2025 Telephone [facility] [address] [place] [phone] Onel Vo DDS rs appt/obgyn clearance from Last 3 Months Family History Medical History Relation Name Comments Rheum arthritis Sister Relation Name Status Comments Sister Social History Tobacco Use Types Packs/Day Years Used Date Smoking Tobacco: Never Smokeless Tobacco: Never Tobacco Cessation:Counseling Given: Not Answered Alcohol Use Standard Drinks/Week Comments Never 0 (1 standard drink = 0.6 oz pur e alcohol) Depression Answer Date Recorded Patient Health Questionnaire-9 Score 24 04/19/2025 Patient Health Questionnaire-9 Score 24 04/19/2025 Last PHQ-9: Questionnaire Data Not on file 1 Housing Stability Answer Date Recorded What is your housing situation today? I have marah sanii 01/04/[address] you li [...] Orientation Straight 10/31/2023 8: 35 AM EDT Last Filed Vital Signs Vital Sign Reading [...] Mass Index 30.07 04/19/2025 3:00 PM EDT Plan of Treatment Upcoming Encounters Date Type Department Care Team (Late st Contact Info) Description 05/17/2025 11:00 AM EST Office Visit [facility] [address] [place] [address] Rizwana Ware DDS [address] [place] [address] Health Maintenance Due Date Last Done Comments Dental Prophylaxis 1995 Lipid Panel 1995 Family Planning (PISQ) 2010 HPV Vaccines (1 - 3-dose series) 2010 Hepatitis C Screening 2013 Hepatitis A Vaccines (2 of 2 - 2-dose series) 04/18/2013 10/17/2012 Hepatitis B Vaccines (1 of 3 - 19+ 3-dose series) 2014 Pneumococcal Vaccine: Pediatrics (0 to 5 Years) and At-Risk Patients (6 to 49) Years (1 of 2 - PCV) 2014 Dental Oral Exam 01/21/2025 07/23/2024 COVID-19 Vaccine (1 - 2023-2 5 season) 2025 Influenza Vaccine (#1) 2025 08/12/2013 Dental X-Ray: Bitewings 07/24/2025 07/23/2024 Depression Monitoring 10/18/2025 04/19/2025 , 04/19/2025 SDOH Screening 01/04/2026 01/04/2025 Alcohol/Substance Use Screening 04/19/2026 04/19/2025 Disability Screening 04/19/2026 04/19/2025 Tobacco Screening 04/19/2026 04/19/2025 Cervical Cancer Screening 07/02/2026 HPV/Cotest 07/02/2026 Pap Smear 07/02/2026 07/02/2023 Dental X-Ray: Full Mouth 07/24/2027 07/23/2024 DTaP/Tdap/Td Vaccines (3 - T d or Tdap) 03/30/2034 03/30/2024, 08/12/2013 Zoster Vaccines (1 of 2) 2045 RSV Patients and Patients Aged 60 years or older (1 - 1-dose 75+ series) 2070 HIV Screening Completed 02/23/2023 HIB Vaccines Aged Out No longer eligi ble based on patient's age to complete this topic IPV Vaccines Aged Out No longer eligi ble based on patient's age to complete this topic Meningococcal B Vaccine Aged Out No l onger eligible based on patient's age to complete this topic Meningococcal Vaccine Aged Out No yifan zachariah eligible based on patient's age to complete this topic RSV under 20 months Aged Out No longe r eligible based on patient's age to complete this topic Rotavirus Vaccines Aged Out No longer eligible based on patient's age to complete this topic Procedures Procedure Name Priority Date/Time Associated Diagnosis Comments CHLAMYDIA/N. GONORRHOEAE RNA, TMA, UROGENITAL Routine 04/19/2025 3:34 PM EDT Vaginal discharge BACTERIAL VAGINOSIS PANEL Routine 04/19/2025 3:34 PM EDT Vaginal discharge CASE PRESENTATION, DETAILED AND EXTENSIVE TREATMENT PLANNING Routine 04/12/2025 2:30 PM EDT 9 EXTRACTION, ERUPTED TOOTH OR EXPOSED ROOT (ELEVATION/FORCEPS REMOVAL) Routine 04/12/2025 2:30 PM EDT 13 EXTRACTION, ERUPTED TOOTH OR EXPOSED ROOT (ELEVATION/FORCEPS REMOVAL) Routine 04/12/2025 2:30 PM EDT 14 EXTRACTION, ERUPTED TOOTH OR EXPOSED ROOT (ELEVATION/FORCEPS REMOVAL) Routine 04/12/2025 2:30 PM EDT INTRAORAL - COMPLETE SERIES OF RADIOGRAPHIC IMAGES Routine 07/23/2024 2:30 PM EST Rampant dental caries Encounter for dental examination Dental calculus COMPREHENSIVE ORAL EVALUATION - NEW OR ESTABLISHED PATIENT Routine 07/23/2024 2:30 PM EST Rampant dental caries Encounter for dental examination Dental calculus HM PAP/HPV Routine 07/02/2023 11:43 AM EST HM HIV 1/2 ANTIGEN AND ANTIBODY Routine 02/23/2023 from Last 3 Months or Most Recently Relevant to Health Maintenance Results * (ABNORMAL) Bacterial Vaginosis Panel (04/19/2025 3:34 PM EDT) TRICHOMONAS VAGINALIS DETECTION BY PCR NOT DETECTED Not Detect [facility] BACTERIAL VAGINOSIS DETECTION BY PCR POSITIVE(A) Negative [facility] Comment:The BV organism targ ets [...] GROUP DETECTION BY PCR DETECTED(A) Not Detect [facility] Minna glab krusei PCR NOT DETECTED Not Detect [facility] Swab Vaginal structure / Unknown 04/19/2025 3:34 PM EDT 04/20/2025 11:44 AM EDT us Chata Graham CIGAR HEAD PIERCER LAB MICROBIOLOGY - GENERAL ORDER BRIANDA Final Result [facility] [address] [place] [phone] [phone] * Chlamydia/N. Gonorrhoeae RNA, TMA, Vaginal (04/19/2025 3:34 PM EDT) CT PCR NOT DETECTED Not Detect. [facility] Comment:A not detected test result [...] psychologicalconsequences. NG PCR NOT DETECTED Not Detect. [facility] Comment:A not detected test result [...] 3:34 PM EDT 04/20/2025 11:44 AM EDT Chata Graham NP LAB MICROBIOLOGY - GENERAL ORDER BRIANDA Final Result [facility] [address] [place] [address] [phone] * PAP/HPV (07/02/2023 11:43 AM EST) Historical Provider HEALTH MAINTENANCE Final Result * HIV 1/2 Antigen and Antibody (02/23/2023) HIV Ag/Ab Nonreactive Historical Provider HEALTH MAINTENANCE Final Result from Last 3 Months or Most Recently Relevant to Health Maintenance Insurance [facility] C3 [facility] [address]ANDARD [address] [place] [address] [facility] AD[facility] Care Teams Water Supply Engineer Relationship Specialty Start Date End Date Chata Graham NP [address] [place] [phone] PCP - General Family Medicine 02/03/24
--- OUTSIDE RECORDS SUMMARY | 2025-04-22 09:51 | XMS_ITS | Encounter Summary ---
Author Organization [employer] Address [address] [facility] 7t [place] [address] Care Team Providers Care Net Making Supervisor Name Role Phone Chata Graham NP Primary Care Provider [phone] Reason for Visit * Reason Onset Date Comments chart prep 04/18/2025 Encounter Details Date Type Department Care Team ([facility] Contact Info) Description 04/18/2025 Telephone [facility] [address] [place], [place] [phone] Chata Graham NP [address] [place] [address] chart prep Social History Tobacco Use Types Packs/Day Years [...] encounter Miscellaneous Notes * Telephone Encounter - Joan Gregory MA - 04/18/2025 10:39 AM EDT Chart Prep Labs: not applicable Images: not applicable Referrals: not applicable Vaccines due: Covid, Flu, Hep B, Hep A, and HPV Screenings: LMP Overdue care gaps: SBIRT, PHQ-9, MIKHAIL-7, and Disability screen documented in this encounter Plan of Treatment Upcoming Encounters Date Type Department Care Team (Late st Contact Info) Description 05/17/2025 11:00 AM EST Office Visit [facility] [address] [place] [address] Rhodes-Rizwana Schmitt, DDS [address] [place] [address] documented as of this encounter Visit Diagnoses Not on filedocumented in this encounter Care Teams Net Making Supervisor Relationship Specialty Start Date End Date Chata Graham NP [address] [place] [address] PCP - General Family Medicine 02/03/24 documented as of this encounter
--- OUTSIDE RECORDS SUMMARY | 2025-04-22 09:51 | XMS_ITS | Encounter Summary ---
Author Organization [employer] Address [address] 7[address] [place] [address] Care Team Providers Care Phlebotomist Medical Lab Assistant Name Role Phone Chata Graham NP Primary Care Provider [phone] Encounter Details Date Type Department Care Team (Latest Contact Info) Description 04/19/2025 Travel Social History Tobacco Use Types Packs/Day Years [...] AM EDT documented as of this encounter Functional Status * Over the [...] the days 04/19/2025 3:42 PM EDT Jessica Birdges MA * Feeling tired or having little [...] MIKHAIL-7 Total Score 2 04/19/2025 3:40 PM YOSELYNT Jessica Hope MA documented as of this encounter Plan of Treatment Upcoming Encounters Date Type Department Care Team (Late st Contact Info) Description 05/17/2025 11:00 AM EST Office Visit [facility] [address] [place] [address] Rhodes-SchmittRizwana escobedo, DDS [address] [place] [address] documented as of this encounter Visit Diagnoses Not on filedocumented in this encounter Additional Health Concerns Assessment Noted Time PHQ-9 Depression Total Score: 24 025 3:42 PM EDT documented as of this encounter Care Teams Phlebotomist Medical Lab Assistant Relationship Specialty Start Date End Date Chata Graham NP [address] [place] [address] PCP - General Family Medicine 02/03/24 documented as of this encounter
--- OUTSIDE RECORDS SUMMARY | 2025-04-22 09:52 | XMS_ITS | Encounter Summary ---
Author Organization [employer] Address [address] 7[address] [place] [address] Care Team Providers Care Circular Sawyer Stone Name Role Phone Chata Graham NP Primary Care Provider [phone] Encounter Details Date Type Department Care Team (Latest Contact Info) Description 04/18/2025 Travel Social History Tobacco Use Types Packs/Day [...] AM EDT documented as of this encounter Plan of Treatment Upcoming Encounters Date Type Department Care Team (Late st Contact Info) Description 05/17/2025 11:00 AM EST Office Visit [facility] [address] [place] [address] Rizwana Ware DDS [address] [place] [address] documented as of this encounter Visit Diagnoses Not on filedocumented in this encounter Care Teams Circular Sawyer Stone Relationship Specialty Start Date End Date Chata Graham NP [address] [place] [address] PCP - General Family Medicine 02/03/24 documented as of this encounter
--- OUTSIDE RECORDS SUMMARY | 2025-04-22 09:52 | XMS_ITS | Encounter Summary ---
Author Organization [employer] Address [address] [facility] [address] [place] [address] Care Team Providers Care Wool Classer Name Role Phone Chata Graham NP Primary Care Provider [phone] Encounter Details Date Type Department Care Team ([facility] st Contact Info) Description 07/27/2024 Telephone [facility] [address] [place] [address] Rizwana Ware DDS [address] [place] [address] Social History Tobacco Use Types Packs/Day Years Used Date Smoking Tobacco: Never Smokeless Tobacco: Never Alcohol Use Standard Drinks/Week Comments Never 0 (1 standard drink = 0.6 oz pur e alcohol) Housing Stability Answer Date Recorded What is your housing situation today? I do not have housing (Staying with others, in a hotel, in a skilled nursing, living outside on the street, on a beach, in a car, or in a park 01/27/[address] you li ve. Do you have problems with any of the following? None of the above 01/27/2024 Food Insecurity Answer Date Recorded Within the past 12 months, y ou worried that your food would run out before you got money to buy more: Sometimes True 2023 Within the past 12 months,th e food you bought just didn't last and you didn't have enough money to get more: Sometimes True 01/27/2024 Transportation Answer Date Recorded In the past [...] encounter Miscellaneous Notes * Telephone Encounter - Chen Subramanian - 07/27/2024 1:18 PM EST Nm doctor chloé Patient called up set about her mouth wash and medication documented in this encounter Plan of Treatment Upcoming Encounters Date Type Department Care Team (Late st Contact Info) Description 05/17/2025 11:00 AM EST Office Visit [facility] [address] [place] [address] Rizwana Ware DDS [address] [place] [address] documented as of this encounter Visit Diagnoses Not on filedocumented in this encounter Care Teams Wool Classer Relationship Specialty Start Date End Date Chata Graham NP [address] [place] [address] PCP - General Family Medicine 02/03/24 documented as of this encounter
--- OUTSIDE RECORDS SUMMARY | 2025-04-22 09:52 | XMS_ITS | Encounter Summary ---
Author Organization [employer] Address [address] [facility] 7t [place] [address] Care Team Providers Care Advertising Copywriter Name Role Phone Chata Graham NP Primary Care Provider [phone] Reason for Visit * Reason Onset Date Comments active request [facility] extraction 12/07/2024 Encounter Details Date Type Department Care Team ([facility] st Contact Info) Description 12/07/2024 Telephone [facility] ADULT [facility]ENTAL [address] [place] [address] Orlin Hardin DDS [address] [place] [address] active request [facility] extraction Social History Tobacco Use Types Packs/Day Years Used Date Smoking Tobacco: Never Smokeless Tobacco: Never Alcohol Use Standard Drinks/Week Comments Never 0 (1 standard drink = 0.6 oz pur e alcohol) Housing Stability Answer Date Recorded What is your housing situation today? I do not have housing (Staying with others, in a hotel, in a jail, living outside on the street, on a [...] * Telephone Encounter - Hailey Munoz - 12/07/2024 12:00 PM EDT Patient was active requested for [facility] with Dr. Diaz for extraction. She has been scheduled several times however canceled because [facility] is no longer easy for her to get to and continued scheduling believing she can make it to [place] however no longer can. Easier for her to seen in [facility]. Spoke to front tender. Informed active request can be changed to [facility] however patient can call weekly to verify availability or cancellations Otherwise she will be waiting for a call to schedule DR documented in this encounter Plan of Treatment Upcoming Encounters Date Type Department Care Team (Late st Contact Info) Description 05/17/2025 11:00 AM EST Office Visit [facility] [address] [place] [address] Rhodes-Schmitt, Rizwana, DDS [address] [place] [address] documented as of this encounter Visit Diagnoses Not on filedocumented in this encounter Care Teams Advertising Copywriter Relationship Specialty Start Date End Date Chata Graham NP [address] [place] [address] PCP - General Family Medicine 02/03/24 documented as of this encounter
--- OUTSIDE RECORDS SUMMARY | 2025-04-22 09:52 | XMS_ITS | Encounter Summary ---
Author Organization [employer] Address [address] [facility] [address]t [place] [address] Care Team Providers Care Waxing Machine Operator Helper Name Role Phone Chata Graham NP Primary Care Provider [phone] Encounter Details Date Type Department Care Team ([facility] st Contact Info) Description 08/18/2024 Orders Only [facility] [address] [place] [address] Provider, MD Romero Social History Tobacco Use Types Packs/Day Years Used Date Smoking Tobacco: Never Smokeless Tobacco: Never Alcohol Use Standard Drinks/Week Comments Never 0 (1 standard drink = 0.6 oz pur e alcohol) Housing Stability Answer Date Recorded What is your housing situation today? I do not have housing (Staying with others, in a hotel, in a alf, living outside on the street, on a [...] Description 05/17/2025 11:00 AM EST Office Visit [facility]ULT [facility] [address] [place] [address] Rizwana Ware DDS [address] [place] [address] documented as of this encounter Procedures Procedure Name Priority Date/Time Associated Diagnosis Comments HM PAP/HPV Routine 07/02/2023 11:43 AM EST documented in this encounter Results * HM PAP/HPV (07/02/2023 11:43 AM EST) us Historical Provider HEALTH MAINTENANCE Final Result documented in this encounter Visit Diagnoses Not on filedocumented in this encounter Care Teams Waxing Machine Operator Helper Relationship Specialty Start Date End Date Chata Graham NP [address] [place] [address] PCP - General Family Medicine 02/03/24 documented as of this encounter
[2025-04-22 12:10] LABS: Cholesterol 208 mg/dL (<200); HDL Cholesterol 53 mg/dL (>40); Triglycerides 199 mg/dL (<150)
[2025-04-22 12:46] LABS: HBS Num1 1.56 mIU/mL (0-7.99); HBsAGNum1 0.50 S/CO (0.00-0.99); HIV Num 1 0.05 S/CO (0.00-0.99); Hepatitis B Surface Antigen Negative (Negative); ~HepC Num1 0.07 S/CO (0.00-0.79); ~Hepatitis B Surface Antibody NONREACTIVE (Nonreactive); ~Hepatitis C Antibody Nonreactive (Nonreactive)
[2025-04-23 10:57] LABS: Lyme Abs Screen <0.90 index
[2025-04-25 21:59] LABS: Rubeola IgG (Measles) >300.00 AU/mL
== END 2025-04-22 09:20 | disposition home or self-care (01) ==
LOC: HO.HHCL 09:19
PROVIDERS: PCP Nurse Practitioner Family; Visit Provider Nurse Practitioner Family
DX: Z01.84 Encounter for antibody response examination (principal); Z34.90 Encounter for supervision of normal pregnancy, unspecified, unspecified trimester; Z11.4 Encounter for screening for human immunodeficiency virus [HIV]; Z11.59 Encounter for screening for other viral diseases; S70.36 Insect bite (nonvenomous) of thigh; W57.XXXD Bitten or stung by nonvenomous insect and other nonvenomous arthropods, subsequent encounter
CPT/HCPCS: 36415; 80061; 86592; 86617; 86618; 86706; 86735; 86762; 86765; 86787; 86803; 87340; 87389